=== PATIENT | male | born 1945 | race Caucasian/White ===

== ENCOUNTER 2016-11-29 13:29 | Emergency (ER) | payer MEDICARE, MEDICAID ==
[2016-11-29 13:29] VITALS: BMI 27.3
[2016-11-29 13:54] VITALS: RESP 18
--- NOTE | 2016-11-29 14:34 | C.PDOC ---
History Of Present Illness 71 yr old male presents to the ER accompanied by family for evaluation of left sided lower back pain radiating down the left buttock and left posterior leg for the past 3 days. Patient states the pain is constant, aching and worse with walking/standing. Patient and family denies known trauma or injury, headache, dizziness, CP, SOB, dyspnea, abdominal pain, N/V, dysuria, incontinence, saddle anesthesia, denies weakness, sensory or vascular deficits to B/L LEs. Pt ambulate to Ed for evaluation, not in any apparent distress. Time Seen by Provider: 11/29/16 13:58 Chief Complaint (Nursing): Back Pain History Per: Patient History/Exam Limitations: no limitations Onset/Duration Of Symptoms: Days (3) Past Medical History Reviewed: Historical Data, Nursing Documentation, Vital Signs Vital Signs: Last Vital Signs Temp 98.5 F 11/29/16 13:53 Pulse 85 11/29/16 13:53 Resp 18 11/29/16 13:53 BP 136/83 11/29/16 13:53 Pulse Ox - Medical History PMH: HTN, Hypercholesterolemia Family History: States: No Known Family Hx - Social History Hx Alcohol Use: No Hx Substance Use: No - Immunization History Hx Tetanus Toxoid Vaccination: No Hx Influenza Vaccination: No Hx Pneumococcal Vaccination: No Review Of Systems Except As Marked, All Systems Reviewed And Found Negative. Gastrointestinal: Negative for: Abdominal Pain Genitourinary: Negative for: Dysuria, Incontinence Musculoskeletal: Positive for: Back Pain (Left sided lower back, radiating to left buttock and left posterior leg ) Neurological: Negative for: Weakness, Numbness Physical Exam - Physical Exam Appears: Non-toxic, No Acute Distress Skin: Warm, Dry, No Rash Gastrointestinal/Abdominal: Soft, No Tenderness, No Distention, No Guarding, No Rebound Back: No CVA Tenderness, No Vertebral Tenderness, Paraspinal Tenderness (Left sided lumbar paraspinal tenderness), Other ((+) Left gluteal tenderness. ) Extremity: Normal ROM, No Tenderness, No Pedal Edema, Calf Tenderness (Left ), No Deformity, No Swelling Neurological/Psych: Oriented x3, Normal Speech, Normal Motor, Normal Sensation, Normal Reflexes ED Course And Treatment - Other Rad X-Ray - LS Spine X-Ray: Interpreted by Me, Viewed By Me Interpretation: (+) diffuse DJD, no acute fx or sublux Progress Note: On re-eval, pt is afebrile, hemodynamiclay stable. Non-toxic. Abd: benign, (-) guarding, (-) rebound. back: (+) Left lumbar paraspinal tenderness. no palpable deformity, no skin changes. neurologicaly intact. Doppler US LLE (-) DVT. Pt has clinical findings c/w lumbar radiculopathy, left. Pt and family advised on course of ds. ref. to f/u with PMD, PM, PT in 2 -3 dyas for re-eval and further tx. return to Ed if any worsening or new changes. Medical Decision Making Medical Decision Making: PLAN: * X-Ray - LS Spine * Venous Duplex Disposition Counseled Patient/Family Regarding: Studies Performed, Diagnosis, Need For Followup, Rx Given - Disposition Referrals: [facility] [Outside] Disposition: HOME/ ROUTINE Disposition Time: 15:34 Condition: STABLE Additional Instructions: Avoid bending forward, lifting, prolong walking, etc. NO physical activity for 1 week Take medication as prescribed as need for pain Follow up with PMD in 2-3 days for re-evaluation. return to Ed if any worsening or new changes. 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 - Scribe Statement The provider has reviewed the documentation as recorded by the Scribe Dorene Mitchell All medical record entries made by the Amyibjared were at my direction and personally dictated by me. I have reviewed the chart and agree that the record accurately reflects my personal performance of the history, physical exam, medical decision making, and the department course for this patient. I have also personally directed, reviewed, and agree with the discharge instructions and disposition.
--- NOTE | 2016-11-29 15:55 | RAD ---
PROCEDURE: Radiographs of the Lumbar Spine. HISTORY: pain COMPARISON: No prior. FINDINGS: BONES: No acute fracture. Vertebral bodies maintained in height. Grade 1 anterolisthesis at L4-5. DISC SPACES: Disc spaces maintained in height. Spondylotic changes with osteophytes about all of the intervertebral disc spaces. OTHER FINDINGS: None. IMPRESSION: No acute fracture. Grade 1 anterolisthesis at L4-5. Multilevel spondylotic change.
[2016-11-29 16:57] VITALS: BP 155/82; PULSE 58; TEMP 98.1; O2SAT 100
--- NOTE | 2016-11-30 13:38 | VASCLAB ---
PROCEDURE: Left Lower Extremity Venous Duplex Exam. HISTORY: pain PRIORS: None. TECHNIQUE: Left common femoral, femoral, popliteal and posterior tibial, peroneal and great saphenous veins were evaluated. Flow was assessed with color Doppler, compressibility, assessment of phasic flow and augmentation response. Report prepared by DANA Salter, RVT FINDINGS: LEFT: 1. Common Femoral Vein: 1.1. Compressibility - Fully compressible: Thrombus - None : Flow - Phasic: Augmentation -Normal: Reflux - None. 2. Femoral Vein: 2.1. Compressibility - Fully compressible: Thrombus - None: Flow - Phasic: Augmentation -Normal: Reflux - None. 3. Popliteal Vein: 3.1. Compressibility - Fully compressible: Thrombus - None: Flow - Phasic: Augmentation -Normal: Reflux - None. 4. Posterior Tibial Vein: 4.1. Compressibility - Fully compressible: Thrombus - None: Flow - Phasic: Augmentation -Normal: Reflux - None. 5. Peroneal Vein: 5.1. Compressibility - Fully compressible: Thrombus - None: Flow - Phasic: Augmentation -Normal: Reflux - None. 6. Great Saphenous Vein: 6.1. Compressibility - Fully compressible: Thrombus - None: Flow - Phasic: Augmentation - Normal: Reflux - None. OTHER FINDINGS: IMPRESSION: No evidence of deep or superficial vein thrombosis of the left lower extremity with excellent venous flow. Normal valve function noted of the left side. Normal venous flow noted in the right common femoral vein.
== END 2016-11-29 16:57 | disposition home or self-care (01) ==
LOC: C.ER 13:29
DX: M54.16 Radiculopathy, lumbar region (principal)